=== PATIENT | female | born 1965 | race Caucasian/White ===

== ENCOUNTER → 2020-04-24 14:37 | Outpatient (CLI) | payer OTHER, SELFPAY ==
--- NOTE | ~2020-04-24 | US_ITS ---
EXAMINATION: US thyroid DATE: 04/24/2020 15:01 INDICATION: Nontoxic thyroid nodules. TECHNIQUE: Multiple ultrasound images of the thyroid were obtained. COMPARISON: Ultrasound 03/29/2019 FINDINGS: The right thyroid lobe measures 5.0 x 2.1 x 2.2 cm. The left thyroid lobe measures 4.1 x 1.3 x 1.8 c m. There are multiple nodules in the thyroid. In the right thyroid lobe, there is a 2.7 cm solid, hy poechoic, jqhon-wndn-gavt nodule with ill-defined margin without echogenic foci (TI-RADS TR4) that [facility] el[facility] pathology consistent with benign follicular nodule at fine-needle aspiration on 04/30/2019 when it measured 2.6 cm. In the right thyroid lobe, there is an 8 mm solid, hypoechoic, kghdg-lcqk-lfwh n odule with ill-defined margin without echogenic foci (TR4). In the left thyroid lobe, there is a 10 m m solid, hypoechoic, mbjxh-woya-ejvz nodule with smooth margin without echogenic foci (TR4), stable f rom 03/29/19. IMPRESSION: 1. Stable thyroid nodules. Thyroid ultrasound is recommended in one year for the 10 mm TR4 nodule in left thyroid lobe. Reviewed, dictated and finalized at location A. IMPRESSION: 1. Stable thyroid nodules. Thyroid ultrasound is recommended in one year for th e 10 mm TR4 nodule in left thyroid lobe.
== END ==
PROVIDERS: PCP Student in an Organized Health Care Education/Training Program; Visit Provider Otolaryngology
DX: E04.2 Nontoxic multinodular goiter (principal)
CPT/HCPCS: 76536

== ENCOUNTER 2021-05-13 10:19 | Outpatient (CLI) | payer OTHER, SELFPAY ==
[2021-05-13 10:40] LABS: Basophils Absolute Auto 0.1 K/mm3 (0.0-0.1); Basophils Percent Auto 0.6 % (0.2-1.2); Eosinophils Absolute Auto 0.6 K/mm3 (0-0.3); Eosinophils Percent Auto 7.5 % (0-4.4); Hematocrit 43.6 % (37.0-47.0); Hemoglobin 15.1 g/dL (12.0-15.0); Immature Granulocyte Absolute 0.03 K/mm3 (0.00-0.031); Immature Granulocyte Percent A 0.4 % (0-0.5); Lymphocytes Percent Auto 38.2 % (18.3-44.2); Mean Corpuscular HGB Conc 34.6 g/dl (32-36); Mean Corpuscular Hemoglobin 31.8 pg (26-34); Mean Corpuscular Volume 91.8 fl (80-100); Mean Platelet Volume 11.3 fl (7.4-10.4); Monocytes Absolute Auto 0.6 K/mm3 (0.1-0.6); Monocytes Percent Auto 7.8 % (2.6-8.5); Neutrophils Absolute Auto 3.7 K/mm3 (1.3-6.7); Neutrophils Percent Auto 45.5 % (45.5-73.1); Platelet Count Result 257 k/mm3 (150-375); Red Blood Count 4.75 M/mm3 (4.2-5.4); Red Cell Distribution Width 12.9 % (11.5-14.5); White Blood Count 8.1 K/mm3 (4.5-10.0)
[2021-05-13 10:57] LABS: D Dimer 0.29 ug/mL (<0.48)
[2021-05-13 11:00] LABS: Hemoglobin A1C 5.9 % (<5.7)
[2021-05-13 11:11] LABS: Alanine Aminotransferase 33 U/L (4-35); Albumin Level 4.6 g/dL (3.5-5.1); Alkaline Phosphatase 93 U/L (38-126); Anion Gap 8 mmol/L (8-16); Aspartate Amino Transferase 27 U/L (14-36); Bilirubin,Total 0.6 mg/dL (0.2-1.3); Blood Urea Nitrogen 12 mg/dL (7-17); Calcium 9.3 mg/dL (8.4-10.2); Carbon Dioxide 29 mmol/L (22-30); Chloride 103 mmol/L (98-107); Cholesterol 222 mg/dL (0-200); Estimated Glomerular Filt Rate > 60; Glucose 148 mg/dL (65-110); HDL Direct 40 mg/dL; Potassium 4.1 mmol/L (3.4-5.0); Sodium 140 mmol/L (137-145); Triglycerides 324 mg/dL (<150)
[2021-05-13 11:23] LABS: LDL Cholesterol Direct 126 mg/dL; NT Pro B Type Natriuretic Pept 33 pg/mL (5-100)
[2021-05-13 11:30] LABS: Vitamin D 25 Hydroxy 67.6 ng/mL
== END 2021-05-13 10:20 | disposition home or self-care (01) ==
LOC: ANHLAB 10:24
PROVIDERS: PCP Student in an Organized Health Care Education/Training Program; Visit Provider Student in an Organized Health Care Education/Training Program
DX: Z13.29 Encounter for screening for other suspected endocrine disorder (principal); Z13.228 Encounter for screening for other metabolic disorders; Z13.0 Encounter for screening for diseases of the blood and blood-forming organs and certain disorders involving the immune mechanism
CPT/HCPCS: 36415; 80053; 80061; 82306; 83036; 83880; 84443; 85025; 85380

== ENCOUNTER → 2021-10-28 12:37 | Outpatient (CLI) | payer OTHER, SELFPAY ==
--- NOTE | ~2021-10-28 | US_ITS ---
EXAMINATION: US thyroid DATE: 10/28/2021 13:01 INDICATION: Nontoxic thyroid nodules. TECHNIQUE: Multiple ultrasound images of the thyroid were obtained. COMPARISON: Ultrasound 04/30/2019, 03/29/2019 FINDINGS: The right thyroid lobe measures 6.0 x 2.1 x 2.4 cm. The left thyroid lobe measures 5.2 x 1.5 x 1.9 c m. There are multiple subcentimeter nodules in the thyroid. In the right thyroid lobe, there is a 3. 0 cm solid, hypoechoic, mzcxl-rjgv-vdrl nodule with lobulated margin without echogenic foci (TI-RADS TR4), stable from 04/30/19 when biopsy was benign. In the right thyroid lobe, there is a 7 mm solid, hypoechoic, jprki-qwvr-evos nodule with smooth margin and peripheral calcifications (TR4). In the rig ht thyroid lobe, there is a 10 mm solid, very hypoechoic, tniuj-esmo-rmhp nodule with ill-defined mar gin without echogenic foci (TR4). In the right thyroid lobe, there is a 1.1 cm solid, hypoechoic, wid fj-xuge-edxz nodule with ill-defined margin and punctate echogenic foci (TR5). IMPRESSION: 1. Multinodular goiter. Ultrasound-guided fine-needle aspiration of the 1.1 cm nodule in right thyroi d lobe is recommended. Reviewed, dictated and finalized at location A. IMPRESSION: 1. Multinodular goiter. Ultrasound-guided fine-needle aspiration of the 1.1 cm nodule in right thyroid lobe is recommended.
== END ==
PROVIDERS: PCP Student in an Organized Health Care Education/Training Program; Visit Provider Otolaryngology
DX: E04.2 Nontoxic multinodular goiter (principal)
CPT/HCPCS: 76536

== ENCOUNTER 2021-12-14 10:25 | Outpatient (CLI) | payer OTHER, SELFPAY ==
--- NOTE | ~2021-12-14 | US_ITS ---
EXAMINATION: US FNA w image guidance DATE: 12/14/2021 11:58 INDICATION: Nontoxic multinodular goiter. TECHNIQUE: A time-out was performed to verify the patient's name, date of , and procedure to be performed . The procedure and its benefits and risks were discussed with the patient. Risks specifically discus sed included bleeding and infection. The patient understood the risks and agreed to proceed. The neck was prepped and draped in the usual sterile manner. 3 mL 1% lidocaine was used for local anesthesia . 6 passes were made with a 25G needle into the lesion. Appropriate needle location was documented with continuous sonographic guidance. A sterile bandage was applied. There were no immediate complic ations. FINDINGS: Grayscale ultrasound images demonstrate biopsy needles advanced into the previously noted 1.3 cm TI R ADS 5 predominantly solid hypoechoic nodule with internal punctate echogenic foci. IMPRESSION: 1. Successful ultrasound-guided fine needle aspiration of a 1.3 cm TI RADS 5 right thyroid nodule. Reviewed, dictated and finalized at location A. IMPRESSION: 1. Successful ultrasound-guided fine needle aspiration of a 1.3 cm TI RADS 5 r ight thyroid nodule.
[2021-12-14 12:33] LABS: Hematocrit 41.3 % (37.0-47.0); Mean Corpuscular HGB Conc 33.9 g/dl (32-36); Mean Corpuscular Hemoglobin 31.1 pg (26-34); Mean Corpuscular Volume 91.8 fl (80-100); Mean Platelet Volume 11.5 fl (7.4-10.4); Platelet Count Result 252 k/mm3 (150-375); White Blood Count 7.9 K/mm3 (4.5-10.0)
[2021-12-14 12:44] LABS: Prothrombin Time 12.4 Seconds (11.1-14.7)
[2021-12-14 12:45] LABS: Partial Thromboplastin Time 29.7 SECONDS (22.3-36.8)
== END 2021-12-14 10:26 | disposition home or self-care (01) ==
PROVIDERS: PCP Student in an Organized Health Care Education/Training Program; Visit Provider Otolaryngology
DX: E04.2 Nontoxic multinodular goiter (principal)
CPT/HCPCS: 10005; 36415; 85027; 85610; 85730; 88173; 88305

== ENCOUNTER 2021-12-22 14:40 | Outpatient (CLI) | payer OTHER, SELFPAY ==
--- NOTE | ~2021-12-22 | US_ITS ---
EXAMINATION: US venous doppler LE RT DATE: 12/22/2021 15:18 INDICATION: Right lower limb swelling TECHNIQUE: Nieves scale images without and with compression and Doppler images of the right lower extre mity veins were obtained. COMPARISON: None FINDINGS: The right common femoral vein, profunda femoral vein, femoral vein, popliteal vein, peronea l trunk, posterior tibial veins, and greater saphenous vein are patent. A Sanchez's cyst is noted. IMPRESSION: 1. Patent right lower extremity veins. No evidence of deep venous thrombosis. 2. Sanchez's cyst. Reviewed, dictated and finalized at location A.
== END 2021-12-22 14:41 | disposition home or self-care (01) ==
PROVIDERS: PCP Student in an Organized Health Care Education/Training Program; Visit Provider Orthopaedic Surgery
DX: M79.604 Pain in right leg (principal); M71.21 Synovial cyst of popliteal space [Baker], right knee
CPT/HCPCS: 93971

== ENCOUNTER 2021-12-24 10:42 | Outpatient (CLI) | payer OTHER, SELFPAY ==
--- NOTE | ~2021-12-24 | MR_ITS ---
EXAMINATION: MR lower leg RT wo/w con DATE: 12/24/2021 11:53 INDICATION: Mixed lytic and sclerotic proximal right tibial lesion TECHNIQUE: Magnetic resonance imaging (MRI) of the proximal right lower leg was performed without and with 20 mL Multihance intravenous contrast. Sequences included axial, sagittal and coronal T1-weight ed FSE and T2-weighted FS FSE, axial T1-weighted FS FSE and post contrast axial, sagittal and coronal T1-weighted FS FSE. COMPARISON: Radiographs dated 10/21/2021 FINDINGS: There are several subcentimeter T2 hyperintense and enhancing intramedullary lesions in the proximal metaphysis of the left tibia corresponding to the sclerotic lesions seen on prior radiographs. The T2 signal and enhancement demonstrated a ring and arc-like configuration as does the calcification on t he prior radiograph, typical of enchondromas. Bone marrow signal is otherwise normal throughout. Deep chondral fissuring is seen at the patellar apical ridge with minimal underlying edema-like signal ch josefa. Normal menisci and cartilage in the medial and lateral compartments. The stabilizing ligaments of the knee and visualized portions of the tendons are normal. Physiologic amount fluid in the right knee joint. Moderate-sized Sanchez's cyst. Visualized musculature is unremarkable. IMPRESSION: 1. Cluster of a few subcentimeter lesions in the intramedullary space of the proximal right tibial me taphysis with appearance on both MRI and plain radiographs most consistent with enchondromas. Reviewed, dictated and finalized at location B. IMPRESSION: 1. Cluster of a few subcentimeter lesions in the intramedullary space of the pr oximal right tibial metaphysis with appearance on both MRI and plain radiograph s most consistent with enchondromas.
[2021-12-24 11:18] LABS: Estimated Glomerular Filt Rate > 60
== END 2021-12-24 10:43 | disposition home or self-care (01) ==
PROVIDERS: PCP Student in an Organized Health Care Education/Training Program; Visit Provider Orthopaedic Surgery
DX: R93.6 Abnormal findings on diagnostic imaging of limbs (principal)
CPT/HCPCS: 73720; A9577

== ENCOUNTER → 2022-12-21 14:22 | Outpatient (CLI) | payer OTHER, SELFPAY ==
--- NOTE | ~2022-12-21 | US_ITS ---
Thyroid ultrasound. Clinical History: Multinodular goiter COMPARISON: 10/20/2021 Findings: Real-time sonography of the thyroid gland was performed. The right lobe measures 5.6 x 2.0 x 2.6 cm. The left lobe measures 5.6 x 1.5 x 1.5 cm. The isthmus is 4 mm in AP diameter. There is a 2.9 x 1.9 x 2.2 cm heterogeneous solid nodule at the right mid to upper pole. There is a 1 .2 x 0.7 x 1.1 cm probable cystic nodule at the right lower pole. Multiple additional subcentimeter r ight thyroid lobe nodules are present. Multiple subcentimeter left thyroid lobe nodules are present. Impression: Bilateral thyroid lobe nodules, including dominant right upper pole thyroid nodule, as detailed above . Findings are essentially unchanged from prior exam.. Reviewed, dictated and finalized at [facility]. Impression: Bilateral thyroid lobe nodules, including dominant right upper pole thyroid nod ule, as detailed above. Findings are essentially unchanged from prior exam..
== END ==
PROVIDERS: PCP Student in an Organized Health Care Education/Training Program; Visit Provider Otolaryngology
DX: E04.2 Nontoxic multinodular goiter (principal)
CPT/HCPCS: 76536

== ENCOUNTER 2023-11-03 15:58 | Outpatient (CLI) | payer OTHER, SELFPAY ==
--- NOTE | ~2023-11-03 | MM_ITS ---
EXAMINATION: MM screening teri BI w stephany HISTORY: Screening mammogram TECHNIQUE: Craniocaudal and mediolateral oblique 3-D tomosynthesis images were obtained and synthetic 2-D images were generated. CAD analysis was submitted and interpreted. COMPARISON: No prior mammogram is available for comparison at this institution. BREAST PARENCHYMAL COMPOSITION: The breasts are almost entirely fatty. FINDINGS: There is no evidence of suspicious mass, calcification, or architectural distortion to sugg est malignancy in either breast.. IMPRESSION: 1. No mammographic evidence of malignancy. 2. Recommend routine screening mammography in one year. BI-RADS Category 1: Negative Reviewed, dictated and finalized at location A.
== END 2023-11-03 15:59 ==
PROVIDERS: PCP Student in an Organized Health Care Education/Training Program; Visit Provider Student in an Organized Health Care Education/Training Program
DX: Z12.31 Encounter for screening mammogram for malignant neoplasm of breast (principal)
CPT/HCPCS: 77063; 77067

== ENCOUNTER 2025-01-29 13:20 | Outpatient (CLI) | payer OTHER, SELFPAY ==
--- NOTE | ~2025-01-29 | MM_ITS ---
EXAMINATION: MM screening teri BI w stephany HISTORY: Screening TECHNIQUE: Craniocaudal and mediolateral oblique 3-D tomosynthesis images were obtained and synthetic 2-D images were generated. CAD analysis was submitted and interpreted. COMPARISON: 11/03/2023 BREAST PARENCHYMAL COMPOSITION: Not dense: There are scattered areas of fibroglandular density. FINDINGS: There is no evidence of suspicious mass, calcification, or architectural distortion to sugg est malignancy in either breast. There has been no suspicious interval change. IMPRESSION: 1. No mammographic evidence of malignancy. 2. Recommend routine screening mammography in one year. BI-RADS Category 1: Negative Reviewed, dictated and finalized at location B.
== END 2025-01-29 13:21 | disposition home or self-care (01) ==
PROVIDERS: PCP Student in an Organized Health Care Education/Training Program; Visit Provider Student in an Organized Health Care Education/Training Program
DX: Z12.31 Encounter for screening mammogram for malignant neoplasm of breast (principal)
CPT/HCPCS: 77063; 77067